=== PATIENT | male | born 1955 | race Two or more races ===

== ENCOUNTER 2017-07-27 15:30 | Emergency (ER) | payer OTHER ==
[2017-07-27 15:41] VITALS: TEMP 98.1; BMI 22.9
[2017-07-27] MEDS ORDERED: guaiFENesin 200 mg/10 ml Syrup UD PO STA (16:58)
--- NOTE | 2017-07-27 17:14 | ED PDOC ---
Arrival/HPI - General Chief Complaint: Cough, Cold, Congestion Time Seen by Provider: 07/27/17 15:46 Historian: Patient - History of Present Illness Narrative History of Present Illness (Text): 07/27/17 17:05 61yo male with PMHx of hypertension present with complaint of yellow productive cough, nasal congestion, sore throat, body ache x one week. Reports subjective fever at night. He did not take any medication. Denies chest pain, abdominal pain, nausea, vomiting, sick contact, travel. Past Medical History - Provider Review Nursing Documentation Reviewed: Yes - Cardiac Hx Hypertension: Yes - Pulmonary Hx Respiratory Disorders: No - Neurological Hx Neurological Disorder: No - HEENT Hx HEENT Disorder: No - Renal Hx Renal Disorder: No - Endocrine/Metabolic Hx Endocrine Disorders: No - Hematological/Oncological Hx Blood Disorders: No - Integumentary Hx Dermatological Disorder: No - Musculoskeletal/Rheumatological Hx Musculoskeletal Disorders: No - Gastrointestinal Hx Gastrointestinal Disorders: No - Genitourinary/Gynecological Hx Genitourinary Disorders: No - Psychiatric Hx Psychophysiologic Disorder: No Hx Substance Use: No Family/Social History - Physician Review Nursing Documentation Reviewed: Yes Family/Social History: Unknown Family HX Smoking Status: Never Smoked Hx Alcohol Use: No Hx Substance Use: No Allergies/Home Meds Allergies/Adverse Reactions: Allergies No Known Allergies Allergy (Verified 07/27/17 15:41) Home Medications: Home Meds Medication Instructions Recorded Confirmed Enalapril/Hydrochlorothiazide 1 tab PO DAILY 07/27/17 07/27/17 [Enalapril-Hctz 10-25 mg Tablet] Metoprolol Succinate [Toprol XL] 50 mg PO DAILY 07/27/17 07/27/17 Review of Systems - Physician Review All systems were reviewed & negative as marked: Yes - Review of Systems Constitutional: Normal Eyes: Normal ENT: Sore Throat, Rhinorrhea Respiratory: Cough, Sputum. absent: SOB Cardiovascular: Normal Gastrointestinal: Normal Genitourinary Male: Normal Musculoskeletal: Normal Skin: Normal Neurological: Normal Endocrine: Normal Hemo/Lymphatic: Normal Psychiatric: Normal Physical Exam Vital Signs Reviewed: Yes Vital Signs Temp Pulse Resp BP Pulse Ox 07/27/17 17:49 68 18 128/76 99 07/27/17 15:38 98.1 F 71 16 130/85 96 Temperature: Afebrile Blood Pressure: Normal Pulse: Regular Respiratory Rate: Normal Appearance: Positive for: Well-Appearing, Non-Toxic, Comfortable Pain Distress: None Mental Status: Positive for: Alert and Oriented X 3 - Systems Exam Head: Present: Atraumatic, Normocephalic Pupils: Present: PERRL Extroacular Muscles: Present: EOMI Conjunctiva: Present: Normal Mouth: Present: Moist Mucous Membranes Pharnyx: Present: Normal. No: ERYTHEMA, EXUDATE, TONSILS ENLARGED, Peritonsilar Swelling, Uvular Deviation, Muffled/Hoarse Voice, Strider Nose (Internal): Present: Normal Inspection Neck: Present: Normal Range of Motion Respiratory/Chest: Present: Clear to Auscultation, Good Air Exchange. No: Respiratory Distress, Accessory Muscle Use, Wheezes, Decreased Breath Sounds, Rales, Retracting, Rhonchi, Tachypneic Cardiovascular: Present: Regular Rate and Rhythm, Normal S1, S2. No: Murmurs Abdomen: Present: Normal Bowel Sounds. No: Tenderness, Distention, Peritoneal Signs Back: Present: Normal Inspection Upper Extremity: Present: Normal Inspection. No: Cyanosis, Edema Lower Extremity: Present: Normal Inspection. No: Edema Neurological: Present: GCS=15, CN II-XII Intact, Speech Normal Skin: Present: Warm, Dry, Normal Color. No: Rashes Psychiatric: Present: Alert, Oriented x 3, Normal Insight, Normal Concentration Medical Decision Making ED Course and Treatment: 07/28/17 00:30 PT was hemodynamically stable and comfortable in ED. Rapid Flu and strep was negative CXR was NAD PT's symptoms has been ongoing for a week. He was placed on Zpack for URI. Referred to his PMd. TRT eD for any new or worsening symptoms. - Lab Interpretations Lab Results: Lab Results 07/27/17 16:04: Influenza Typ A,B (EIA) Negative for flu a/b, Grp A Beta Strep Ag Negative - RAD Interpretation Radiology Orders: 07/27/17 15:53 CHEST TWO VIEWS (PA/LAT) [RAD] Stat - Medication Orders Current Medication Orders: Discontinued Medications Azithromycin (Zithromax) 500 mg PO STAT STA PRN Reason: Protocol Stop: 07/27/17 17:03 Last Admin: 07/27/17 17:13 Dose: 500 mg Guaifenesin (Robitussin) 200 mg PO Q4H STA Stop: 07/27/17 16:59 Last Admin: 07/27/17 17:13 Dose: 200 mg Ibuprofen (Motrin Tab) 600 mg PO STAT STA Stop: 07/27/17 17:03 Last Admin: 07/27/17 17:13 Dose: 600 mg MAR Pain/Vitals Document 07/27/17 17:13 GMD (Rec: 07/27/17 17:13 GMD [facility] [id number] Pain Reassessment Is This A Pain ReAssessment? No Sleep Is patient sleeping during reassessment? No Presence of Pain Presence of Pain Yes Disposition/Present on Arrival - Present on Arrival Any Indicators Present on Arrival: No History of DVT/PE: No History of Uncontrolled Diabetes: No Urinary Catheter: No History of Decub. Ulcer: No History Surgical Site Infection Following: None - Disposition Have Diagnosis and Disposition been Completed?: Yes Diagnosis: URI (upper respiratory infection) Disposition: HOME/ ROUTINE Disposition Time: 17:15 Patient Plan: Discharge Condition: STABLE Discharge Instructions (ExitCare): Upper Respiratory Infection (ED) Additional Instructions: Follow up with your doctor Return to ED for any new or worsening symptoms Prescriptions: Azithromycin [Zithromax] 250 mg PO DAILY #4 tab Benzonatate [Tessalon Perle] 100 mg PO TID #30 capsule Referrals: Amaury Ocampo MD [Primary Care Provider] - Follow up with primary Forms: [employer] ([place]ian), WORK NOTE
[2017-07-27 17:50] VITALS: BP 128/76; PULSE 68; RESP 18; O2SAT 99
--- NOTE | 2017-07-28 10:08 | RAD ---
HISTORY: cough COMPARISON: No prior. TECHNIQUE: Chest PA and lateral FINDINGS: LUNGS: No active pulmonary disease. PLEURA: No significant pleural effusion identified. No pneumothorax apparent. CARDIOVASCULAR: Normal. OSSEOUS STRUCTURES: No significant abnormalities. VISUALIZED UPPER ABDOMEN: Normal. OTHER FINDINGS: None. IMPRESSION: No active disease.
== END 2017-07-27 17:52 | disposition home or self-care (01) ==
LOC: ED 15:30
DX: J06.9 Acute upper respiratory infection, unspecified (principal); I10 Essential (primary) hypertension

== ENCOUNTER 2017-09-08 18:28 | Emergency (ER) | payer OTHER ==
[2017-09-08 21:15] VITALS: BMI 26.6
[2017-09-08] MEDS ORDERED: Lidocaine 1% Inj (20ml) SC STA (21:39)
--- NOTE | 2017-09-08 21:43 | ED PDOC ---
Arrival/HPI - General Chief Complaint: Flu-like Symptoms Time Seen by Provider: 09/08/17 21:22 Historian: Patient - History of Present Illness Narrative History of Present Illness (Text): 09/08/17 21:40 61 year old male, whose past medical history includes hypertension, presents complaining of sore throat, cough, ear ache, and yellow discharge from the nose that began 5 hours ago. Patient also reports a subjective fever. Patient denies any chills, chest pain, shortness of breath, nausea, vomiting, diarrhea, urinary symptoms, back pain, neck pain, headache, dizziness, or any other complaints. PMD: Dr. Ocampo Time/Duration: Other (5 hours) Symptom Onset: Sudden Symptom Course: Unchanged Activities at Onset: Light Context: Home Past Medical History - Provider Review Nursing Documentation Reviewed: Yes - Cardiac Hx Hypertension: Yes - Pulmonary Hx Respiratory Disorders: No - Neurological Hx Neurological Disorder: No - HEENT Hx HEENT Disorder: No - Renal Hx Renal Disorder: No - Endocrine/Metabolic Hx Endocrine Disorders: No - Hematological/Oncological Hx Blood Disorders: No - Integumentary Hx Dermatological Disorder: No - Musculoskeletal/Rheumatological Hx Musculoskeletal Disorders: No - Gastrointestinal Hx Gastrointestinal Disorders: No - Genitourinary/Gynecological Hx Genitourinary Disorders: No - Psychiatric Hx Psychophysiologic Disorder: No Hx Substance Use: No Family/Social History - Physician Review Nursing Documentation Reviewed: Yes Family/Social History: No Known Family HX Smoking Status: Never Smoked Hx Alcohol Use: No Hx Substance Use: No Allergies/Home Meds Allergies/Adverse Reactions: Allergies No Known Allergies Allergy (Verified 09/08/17 21:16) Home Medications: Home Meds Medication Instructions Recorded Confirmed Enalapril/Hydrochlorothiazide 1 tab PO DAILY 07/27/17 09/08/17 [Enalapril-Hctz 10-25 mg Tablet] Metoprolol Succinate [Toprol XL] 50 mg PO DAILY 07/27/17 09/08/17 Review of Systems - Physician Review All systems were reviewed & negative as marked: Yes - Review of Systems Constitutional: Fevers. absent: Other (Chills) ENT: TMJ Pain, Sore Throat, Rhinorrhea Respiratory: Cough. absent: SOB Cardiovascular: absent: Chest Pain Gastrointestinal: absent: Diarrhea, Nausea, Vomiting Neurological: Headache. absent: Dizziness Physical Exam Vital Signs Reviewed: Yes Vital Signs Temp Pulse Resp BP Pulse Ox 09/08/17 21:12 98.5 F 77 18 156/90 H 96 Temperature: Afebrile Blood Pressure: Normal Pulse: Regular Respiratory Rate: Normal Appearance: Positive for: Well-Appearing, Non-Toxic, Comfortable Pain Distress: None Mental Status: Positive for: Alert and Oriented X 3 - Systems Exam Head: Present: Atraumatic, Normocephalic, Tenderness (Tender frontal sinus) Pupils: Present: PERRL Extroacular Muscles: Present: EOMI Conjunctiva: Present: Normal Mouth: Present: Moist Mucous Membranes Neck: Present: Normal Range of Motion Respiratory/Chest: Present: Clear to Auscultation, Good Air Exchange. No: Respiratory Distress, Accessory Muscle Use Cardiovascular: Present: Regular Rate and Rhythm, Normal S1, S2. No: Murmurs Abdomen: Present: Normal Bowel Sounds. No: Tenderness, Distention, Peritoneal Signs Back: Present: Normal Inspection Upper Extremity: Present: Normal Inspection. No: Cyanosis, Edema Lower Extremity: Present: Normal Inspection, Other (Paronychia on left third digit). No: Edema Neurological: Present: GCS=15, CN II-XII Intact, Speech Normal Skin: Present: Warm, Dry, Normal Color. No: Rashes Psychiatric: Present: Alert, Oriented x 3, Normal Insight, Normal Concentration Medical Decision Making ED Course and Treatment: 09/08/17 21:40 Impression: 61 year old male presents complaining of subjective fever, sore throat, cough, ear ache, and rhinorrhea that began 5 hours ago. Plan: -- Lidocaine 1% -- Motrin -- Wound Culture -- Influenza A B Stat -- Rapid Strep Group A Antigen Stat -- Reassess and disposition Prior Visits: Notes and results from previous visits were reviewed. Patient was last seen in the emergency department on 07/27/17 presents complaining of yellow productive cough, nasal congestion, sore throat, body ache x one week. Patient was discharged. Progress Notes: 09/08/17 21:47 Procedure: Incision & Drainage Performed by [facility] medical Student supervised by the emergency provider Indication: Abscess Location: left third digit Preparation: The area was prepped and draped in the usual sterile fashion and was cleansed with hydrogen peroxide. Local infiltration of Lidocaine 1% was used for anesthesia. Procedure: The most fluctuant portion of the abscess was incised with a #11 scalpel. Approximately 1 mL of discharge was obtained. The abscess was not packed. A dressing was applied by medical student Valdez. Post-Procedure: On exam the abscess is notably less fluctuant. The patient tolerated the procedure well, and there were no complications. Cultured: YES - Lab Interpretations Lab Results: Lab Results 09/08/17 21:45: Influenza Typ A,B (EIA) Negative for flu a/b, Grp A Beta Strep Ag Negative - Medication Orders Current Medication Orders: Discontinued Medications Ibuprofen (Motrin Tab) 800 mg PO STAT STA Stop: 09/08/17 21:35 Last Admin: 09/08/17 22:00 Dose: 800 mg Lidocaine HCl (Lidocaine 1% (20ml)) 3 ml SC STAT STA Stop: 09/08/17 21:40 - Scribe Statement The provider has reviewed the documentation as recorded by the Sedaibe Clya Turpin Provider Scribe Attestation: All medical record entries made by the Scribe were at my direction and personally dictated by me. I have reviewed the chart and agree that the record accurately reflects my personal performance of the history, physical exam, medical decision making, and the department course for this patient. I have also personally directed, reviewed, and agree with the discharge instructions and disposition. Disposition/Present on Arrival - Present on Arrival Any Indicators Present on Arrival: No History of DVT/PE: No History of Uncontrolled Diabetes: No Urinary Catheter: No History of Decub. Ulcer: No History Surgical Site Infection Following: None - Disposition Have Diagnosis and Disposition been Completed?: Yes Diagnosis: Paronychia, Viral syndrome Disposition: HOME/ ROUTINE Disposition Time: 23:26 Patient Plan: Discharge Patient Problems: Current Active Problems Problem Status Onset Paronychia Acute Viral syndrome Acute Condition: GOOD Discharge Instructions (ExitCare): Paronychia (ED), Viral Syndrome (ED) Additional Instructions: Waqar- Sorry you are not feeling well. You will need antibiotics for the infection on your finger. [Bactrim DS]. Off work for two days. Return to us if any problems. Jonathan- Dr. Cedric Abreu Prescriptions: Sulfamethoxazole/Trimethoprim [Bactrim DS 800 mg-160 mg] 1 tab PO BID #20 tab Referrals: Sammi Ocampo MD [Primary Care Provider] - Follow up with primary Forms: [employer] (Greenlandic), WORK NOTE
[2017-09-08 22:33] LABS: INFLUENZA A B NEGATIVE FOR FLU A/B (NEGATIVE)
[2017-09-09 00:12] VITALS: BP 150/82; PULSE 70; RESP 16; TEMP 98.6; O2SAT 100
== END 2017-09-09 00:11 | disposition home or self-care (01) ==
LOC: ED 18:28
DX: B34.9 Viral infection, unspecified (principal); L03.012 Cellulitis of left finger; I10 Essential (primary) hypertension

== ENCOUNTER 2018-06-10 17:14 | Emergency (ER) | payer MEDICAID, OTHER ==
[2018-06-10 17:14] VITALS: BMI 26.6
[2018-06-10 17:32] VITALS: RESP 18; TEMP 99
--- NOTE | 2018-06-10 18:31 | RAD ---
Date of service: 06/10/2018 HISTORY: cough COMPARISON: 07/27/2017 TECHNIQUE: Chest PA and lateral FINDINGS: LUNGS: No active pulmonary disease. PLEURA: No significant pleural effusion identified. No pneumothorax apparent. CARDIOVASCULAR: No radiographic findings to suggest acute or significant cardiovascular disease. OSSEOUS STRUCTURES: No significant abnormalities. VISUALIZED UPPER ABDOMEN: Normal. OTHER FINDINGS: None. IMPRESSION: No active disease. No significant interval change compared to the prior examination(s).
--- NOTE | 2018-06-10 18:54 | ED PDOC ---
Arrival/HPI - General Historian: Patient - History of Present Illness Narrative History of Present Illness (Text): 06/10/18 19:08 62-year-old male presents today with cough and nasal congestion headache and subjective fevers at home since yesterday. No abdominal pain. No nausea or vomiting. No sick contacts. Patient states he got his flu shot about a month ago. Patient states the cough is occasionally productive. Patient denies any chest pain or shortness of breath. Patient denies dizziness or weakness.Patient complaining of occasional headache. No medications have been taken for pain at home. Patient also complaining of generalized body aches. <Deidra Cash - Last Filed: 06/10/18 19:29> <Traci Harrington - Last Filed: 06/10/18 19:59> - General Chief Complaint: Cough, Cold, Congestion Time Seen by Provider: 06/10/18 17:50 Past Medical History - Provider Review Nursing Documentation Reviewed: Yes - Travel History Have you recently traveled outside [place] w/in the past 3 mons?: No - Infectious Disease Hx of Infectious Diseases: None - Tetanus Immunization Tetanus Immunization: Unknown - Cardiac Hx Hypertension: Yes - Pulmonary Hx Respiratory Disorders: No - Neurological Hx Neurological Disorder: No - HEENT Hx HEENT Disorder: No - Renal Hx Renal Disorder: No - Endocrine/Metabolic Hx Endocrine Disorders: No - Hematological/Oncological Hx Blood Disorders: No - Integumentary Hx Dermatological Disorder: No - Musculoskeletal/Rheumatological Hx Musculoskeletal Disorders: No - Gastrointestinal Hx Gastrointestinal Disorders: No - Genitourinary/Gynecological Hx Genitourinary Disorders: No - Psychiatric Hx Psychophysiologic Disorder: No Hx Substance Use: No - Anesthesia Hx Anesthesia Reactions: No <Deidra Cash - Last Filed: 06/10/18 19:29> Family/Social History - Physician Review Nursing Documentation Reviewed: Yes Family/Social History: Unknown Family HX Smoking Status: Never Smoked Hx Alcohol Use: No Hx Substance Use: No <Deidra Cash - Last Filed: 06/10/18 19:29> Allergies/Home Meds <Deidra Cash - Last Filed: 06/10/18 19:29> <Traci Harrington - Last Filed: 06/10/18 19:59> Allergies/Adverse Reactions: Allergies No Known Allergies Allergy (Verified 09/08/17 21:16) Home Medications: Home Meds Medication Instructions Recorded Confirmed Enalapril/Hydrochlorothiazide 1 tab PO DAILY 07/27/17 09/08/17 [Enalapril-Hctz 10-25 mg Tablet] RX: Metoprolol Succinate XL 50 mg PO DAILY 07/27/17 09/08/17 [Toprol XL] Review of Systems - Review of Systems Constitutional: Fevers. absent: Fatigue ENT: Sore Throat, Sinus Congestion Respiratory: Cough. absent: SOB Cardiovascular: absent: Chest Pain, Palpitations Gastrointestinal: absent: Abdominal Pain, Nausea, Vomiting Genitourinary Male: absent: Dysuria Musculoskeletal: absent: Arthralgias Skin: absent: Rash, Pruritis Neurological: Headache. absent: Dizziness Psychiatric: absent: Anxiety, Depression <AzoiaDeidra T - Last Filed: 06/10/18 19:29> Physical Exam Vital Signs Reviewed: Yes Vital Signs Temp Pulse Resp BP Pulse Ox 06/10/18 17:28 99 F 67 18 133/87 99 Temperature: Afebrile Blood Pressure: Normal Pulse: Regular Respiratory Rate: Normal Appearance: Positive for: Well-Appearing, Non-Toxic, Comfortable Pain Distress: None Mental Status: Positive for: Alert and Oriented X 3 - Systems Exam Head: Present: Atraumatic Pupils: Present: PERRL Extroacular Muscles: Present: EOMI Conjunctiva: Present: Normal Ears: Present: Normal, NORMAL TM Mouth: Present: Moist Mucous Membranes, Normal Lips, Normal Tounge. No: Drooling, Trismus Pharnyx: Present: Normal. No: ERYTHEMA, EXUDATE, TONSILS ENLARGED, Peritonsilar Swelling Nose (External): Present: Atraumatic Nose (Internal): Present: Normal Inspection, Clear Mucous Neck: Present: Normal Range of Motion, Trachea Midline. No: Lymphadenopathy Respiratory/Chest: Present: Clear to Auscultation, Good Air Exchange. No: Respiratory Distress, Accessory Muscle Use Cardiovascular: Present: Regular Rate and Rhythm, Normal S1, S2. No: Murmurs Abdomen: No: Tenderness Back: Present: Normal Inspection. No: CVA Tenderness, Midline Tenderness, Paraspinal Tenderness Upper Extremity: Present: Normal ROM Lower Extremity: Present: Normal ROM Neurological: Present: GCS=15, Speech Normal, Gait Normal Skin: Present: Warm, Dry, Normal Color. No: Rashes Psychiatric: Present: Alert, Oriented x 3 <Deidra Cash Carlos - Last Filed: 06/10/18 19:29> Vital Signs Temp Pulse Resp BP Pulse Ox 06/10/18 17:28 99 F 67 18 133/87 99 <Traci Harrington - Last Filed: 06/10/18 19:59> Medical Decision Making ED Course and Treatment: 06/10/18 19:10 Patient is nontoxic well-appearing in no distress. Vital signs are stable. toradol IM CXR; no infiltrate, no effusion rapid flu; negative tamiflu given Po I advised follow up with primary care physician within the next 2 days. I advised increase fluids and return if symptoms worsen persist or if new symptoms develop. Patient verbalizes understanding of discharge instructions and need for immediate followup. all aspects of this case were discussed the attending of record. IMPRESSION; Influenza Motrin one tablet every 6 hours as needed for pain tamiflu; 1 capsule twice daily x 5 days. Increase fluids Followup with primary care physician the next 2 days Return if symptoms worsen persist or if new symptoms develop Reassessment Condition: Re-examined, Improved - Lab Interpretations Lab Results: Lab Results 06/10/18 18:00: Influenza Typ A,B (EIA) Negative for flu a/b - RAD Interpretation Radiology Orders: 06/10/18 17:51 CHEST TWO VIEWS (PA/LAT) [RAD] Stat - Medication Orders Current Medication Orders: Oseltamivir Phosphate (Tamiflu Cap) 75 mg PO STAT STA; Protocol Stop: 06/10/18 18:51 Discontinued Medications Ketorolac Tromethamine (Toradol) 30 mg IM STAT STA Stop: 06/10/18 17:52 Last Admin: 06/10/18 17:58 Dose: 30 mg MAR Pain Assessment Document 06/10/18 17:58 AILEEN (Rec: 06/10/18 18:00 AILEEN VALLEJO) Pain Reassessment Is this a pain reassessment? Yes Sleep Is patient sleeping during reassessment? Yes Pain Scale Used Protocol: PSCALES Pain Scale Used Numeric Location Pain Location Body Site Back Description Intensity of Pain at present 4 IM Administration Charges Document 06/10/18 17:58 AILEEN (Rec: 06/10/18 18:00 AILEEN VALLEJO) Injection Site MAR Injection Site Left Deltoid Charges for Administration # of IM Administrations 1 <Deidra Cash - Last Filed: 06/10/18 19:29> - Lab Interpretations Lab Results: Lab Results 06/10/18 18:00: Influenza Typ A,B (EIA) Negative for flu a/b - RAD Interpretation Radiology Orders: 06/10/18 17:51 CHEST TWO VIEWS (PA/LAT) [RAD] Stat - Medication Orders Current Medication Orders: Discontinued Medications Ketorolac Tromethamine (Toradol) 30 mg IM STAT STA Stop: 06/10/18 17:52 Last Admin: 06/10/18 17:58 Dose: 30 mg MAR Pain Assessment Document 06/10/18 17:58 AILEEN (Rec: 06/10/18 18:00 AILEEN BOOGIE-PC) Pain Reassessment Is this a pain reassessment? Yes Sleep Is patient sleeping during reassessment? Yes Pain Scale Used Protocol: PSCALES Pain Scale Used Numeric Location Pain Location Body Site Back Description Intensity of Pain at present 4 IM Administration Charges Document 06/10/18 17:58 AILEEN (Rec: 06/10/18 18:00 AILEEN BOOGIE-PC) Injection Site MAR Injection Site Left Deltoid Charges for Administration # of IM Administrations 1 Oseltamivir Phosphate (Tamiflu Cap) 75 mg PO STAT STA; Protocol Stop: 06/10/18 18:51 Last Admin: 06/10/18 18:58 Dose: 75 mg <Traci Harrington - Last Filed: 06/10/18 19:59> - PA / TALENT ACQUISITION OPERATIONS MANAGER / Resident Statement /DO has reviewed & agrees with the documentation as recorded. <Traci Harrington - Last Filed: 06/10/18 19:59> Disposition/Present on Arrival - Present on Arrival Any Indicators Present on Arrival: No History of DVT/PE: No History of Uncontrolled Diabetes: No Urinary Catheter: No History of Decub. Ulcer: No History Surgical Site Infection Following: None - Disposition Have Diagnosis and Disposition been Completed?: Yes Disposition Time: 18:51 Patient Plan: Discharge <Deidra Cash - Last Filed: 06/10/18 19:29> <Traci Harrington - Last Filed: 06/10/18 19:59> - Disposition Diagnosis: Influenza Disposition: HOME/ ROUTINE Condition: GOOD Discharge Instructions (ExitCare): Flu, Adult (DC) Additional Instructions: Motrin one tablet every 6 hours as needed for pain tamiflu; 1 capsule twice daily x 5 days. Increase fluids Followup with primary care physician the next 2 days Return if symptoms worsen persist or if new symptoms develop Prescriptions: Ibuprofen [Motrin] 600 mg PO Q6H PRN #20 tab PRN Reason: pain/fever reduction Oseltamivir [Tamiflu] 75 mg PO BID #10 cap Referrals: Sammi Ocampo MD [Medical Doctor] - Follow up with primary Forms: [employer] ([place]ian), WORK NOTE
[2018-06-10 23:33] VITALS: BP 131/78; PULSE 72; O2SAT 100
--- NOTE | 2018-06-11 06:31 | CARD ---
APPROVED REPORT Date of service: 06/10/2018 EKG Measurement Heart [id number] <Conclusion> Normal sinus rhythm Possible Left atrial enlargement Borderline ECG
== END 2018-06-10 19:00 | disposition home or self-care (01) ==
LOC: ED 17:14
DX: J11.1 Influenza due to unidentified influenza virus with other respiratory manifestations (principal); I10 Essential (primary) hypertension
CPT/HCPCS: 71046; 87804; 93005; 96372; 99283; J1885

== ENCOUNTER 2018-09-12 09:01 | Emergency (ER) | payer MEDICAID ==
[2018-09-12 09:01] VITALS: BMI 26.6
[2018-09-12 09:23] VITALS: RESP 18; TEMP 97.5
--- NOTE | 2018-09-12 10:39 | ED PDOC ---
Arrival/HPI - General Chief Complaint: Back Pain Time Seen by Provider: 09/12/18 09:24 Historian: Patient - History of Present Illness Narrative History of Present Illness (Text): 09/12/18 10:44 62-year-old male presents today with abdominal pain diarrhea and back pain that started at 5 AM this morning. Patient also complaining of anterior chest pain that started an hour ago. Patient denies fevers or chills. Patient states that one month ago he lifted a patient up from the floor while at work and injured his back. Patient states he's been dealing with pain to the lower back radiating into both legs right greater than left ever since lifting the patient up. Patient states she's been taking Motrin and tramadol for pain without improvement. Patient states this morning at 5:00 in the morning he developed worsening lower back pain radiating into the right leg. Patient states he also developed and achy abdominal pain that radiates to the back. pt also states that he developed chest pain that radiates to the back. Patient states he's had a few episodes of diarrhea but states he has not had any diarrhea since being in the emergency room. Patient denies fevers or chills. He denies urinary symptoms. No testicular pain. No headache dizziness or weakness. No other complaints Past Medical History - Provider Review Nursing Documentation Reviewed: Yes - Travel History Have you recently traveled outside [place] w/in the past 3 mons?: No - Infectious Disease Hx of Infectious Diseases: None - Tetanus Immunization Tetanus Immunization: Unknown - Cardiac Hx Hypertension: Yes - Pulmonary Hx Respiratory Disorders: No - Neurological Hx Neurological Disorder: No - HEENT Hx HEENT Disorder: No - Renal Hx Renal Disorder: No - Endocrine/Metabolic Hx Endocrine Disorders: No - Hematological/Oncological Hx Blood Disorders: No - Integumentary Hx Dermatological Disorder: No - Musculoskeletal/Rheumatological Hx Musculoskeletal Disorders: No - Gastrointestinal Hx Gastrointestinal Disorders: No - Genitourinary/Gynecological Hx Genitourinary Disorders: No - Psychiatric Hx Psychophysiologic Disorder: No Hx Substance Use: No - Anesthesia Hx Anesthesia: No Hx Anesthesia Reactions: No Hx Malignant Hyperthermia: No Family/Social History - Physician Review Nursing Documentation Reviewed: Yes Family/Social History: Unknown Family HX Smoking Status: Never Smoked Hx Alcohol Use: No Hx Substance Use: No Allergies/Home Meds Allergies/Adverse Reactions: Allergies No Known Allergies Allergy (Verified 09/08/17 21:16) Home Medications: Home Meds Medication Instructions Recorded Confirmed Enalapril/Hydrochlorothiazide 1 tab PO DAILY 07/27/17 09/12/18 [Enalapril-Hctz 10-25 mg Tablet] Metoprolol Succinate XL [Toprol XL] 50 mg PO DAILY 07/27/17 09/12/18 Review of Systems - Review of Systems Constitutional: absent: Fatigue, Fevers Respiratory: absent: SOB, Cough Cardiovascular: Chest Pain. absent: Palpitations Gastrointestinal: Abdominal Pain, Diarrhea. absent: Constipation, Nausea, Vomiting Genitourinary Male: absent: Dysuria, Frequency, Hematuria Musculoskeletal: Back Pain. absent: Neck Pain Skin: absent: Rash, Pruritis Neurological: absent: Headache, Dizziness Psychiatric: absent: Anxiety, Depression Physical Exam Vital Signs Reviewed: Yes Vital Signs Temp Pulse Resp BP Pulse Ox 09/12/18 09:01 97.5 F L 78 18 149/93 H 97 Temperature: Afebrile Blood Pressure: Hypertensive Pulse: Regular Respiratory Rate: Normal Appearance: Positive for: Well-Appearing, Non-Toxic, Comfortable Pain Distress: None Mental Status: Positive for: Alert and Oriented X 3 - Systems Exam Head: Present: Atraumatic Neck: Present: Normal Range of Motion Respiratory/Chest: Present: Clear to Auscultation, Good Air Exchange. No: Respiratory Distress, Accessory Muscle Use Cardiovascular: Present: Regular Rate and Rhythm, Normal S1, S2. No: Murmurs Abdomen: Present: Tenderness (+ periumbilical tenderness), Normal Bowel Sounds. No: Distention, Rebound, Guarding Back: Present: Normal Inspection, Paraspinal Tenderness (+ bilateral low lumbar paraspinal tenderness. ). No: CVA Tenderness, Midline Tenderness Upper Extremity: Present: Normal Inspection Lower Extremity: Present: Normal Inspection, NORMAL PULSES, Normal ROM, Neurovascularly Intact Neurological: Present: GCS=15, Speech Normal Skin: Present: Warm, Dry, Normal Color. No: Rashes Psychiatric: Present: Alert, Oriented x 3 Medical Decision Making ED Course and Treatment: 09/12/18 10:48 Patient is nontoxic well appearing with stable vital signs presenting with abdominal pain, chest pain, back pain CBC: wnl CMP: bun 26 cr: 1.1 K: 3.3 Lipase: wnl trop; wnl Urinalysis: wnl cxr; wnl CAT scan: Findings: Visualized portions of the inferior thyroid gland appear unremarkable. The mediastinal and hilar vascular structures appear within normal limits. The heart appears within normal limits of size. Coronary artery calcifications. No evidence of thoracic aorta dissection or aneurysmal dilatation. No focal consolidation. No pleural effusion. No pneumothorax. No suspicious pulmonary nodules measuring greater than 5 mm. There is normal course and contour of the abdominal aorta and common iliac art eries. No evidence of aortic aneurysm or dissection. Atherosclerotic calcifications of the aorta and branches. Hypoattenuation of the liver compatible with hepatic steatosis. The pancreas, spleen, adrenal glands, and gallbladder appear unremarkable. The kidneys enhance symmetrically without evidence of hydronephrosis or obstructing renal calculi. 4 mm nonobstructing right renal calculus. 1.9 x 1.3 cm right renal cyst. Sub cm mesenteric adenopathy, nonspecific. No bulky lymphadenopathy identified. Small hiatal hernia. The stomach is nondistended. Visualized bowel loops appear within normal limits of caliber without evidence of obstruction. No inflammatory changes are seen in the right lower quadrant to suggest acute appendicitis. No definite free air. The urinary bladder appears unremarkable. Enlarged prostate gland measures approximately 3.7 x 5.9 cm. No significant pelvic free fluid is identified. Small bilateral, left greater than right, fat containing inguinal hernias. Degenerative changes. 4 mm anterolisthesis of L4 on L5. Impression: No evidence of aortic aneurysm or dissection. Enlarged prostate gland. Recommend correlation with PSA. Additional incidental findings as above. pt given morphine, asa 235mg and potassium Patient reassessment: pt resting comfortably. case discussed with dr. reyes; accepts observational status admission to tele for cp, abd pain and back pain. Discussed all results with patient in depth Impression: chest pain, abdominal pain, back pain admit observational status to remote tele - RAD Interpretation Radiology Orders: 09/12/18 09:43 CHEST PORTABLE [RAD] Stat 09/12/18 10:27 ANGIOGRAPHY DISECTION PROTOCOL [CT] Stat Disposition/Present on Arrival - Present on Arrival Any Indicators Present on Arrival: No History of DVT/PE: No History of Uncontrolled Diabetes: No Urinary Catheter: No History of Decub. Ulcer: No History Surgical Site Infection Following: None - Disposition Have Diagnosis and Disposition been Completed?: Yes Diagnosis: Chest pain, Abdominal pain, Back pain Disposition: HOSPITALIZED Disposition Time: 12:30 Patient Plan: Observation Condition: FAIR
[2018-09-12 10:59] LABS: BASO # 0.03 K/mm3 (0.0-2.0); BASO % 0.6 % (0.0-3.0); EOS # 0.4 (0.0-0.7); EOS % 8.5 % (1.5-5.0); GRAN # 2.32 (1.4-6.5); GRAN % 48.3 % (50.0-68.0); HEMOGLOBIN 14.4 g/dL (14.0-18.0); LYMPH # 1.8 (1.2-3.4); LYMPH % 37.4 % (22.0-35.0); MEAN CELL VOLUME 82.6 fl (80.0-105.0); MEAN CORPUSCULAR HEMOGLOBIN 27.9 pg (25.0-35.0); MEAN CORPUSCULAR HGB CONC 33.7 g/dl (31.0-37.0); MEAN PLATELET VOLUME 8.6 fl (7.0-11.0); MONO # 0.3 (0.1-0.6); MONO % 5.2 % (1.0-6.0); RBC 5.17 10^6/uL (3.5-6.1); RED CELL DISTRIBUTION WIDTH 13.9 % (11.5-14.5); WHITE BLOOD COUNT 4.8 10^3/uL (4.5-11.0)
[2018-09-12 11:08] LABS: INR 0.92; PARTIAL THROMBOPLASTIN TIME 28.3 Seconds (25.1-36.5); PROTHROMBIN TIME 10.6 SECONDS (9.4-12.5)
[2018-09-12 11:10] LABS: ALB/GLOB RATIO 1.3 (1.1-1.8); ALBUMIN 4.6 g/dL (3.0-4.8); ALT/SGPT 29 U/L (7-56); AST/SGOT 31 U/L (17-59); BLOOD UREA NITROGEN 26 mg/dL (7-21); CALCIUM 9.7 mg/dL (8.4-10.5); GFR NON-AFRICAN AMERICAN > 60; LIPASE 137 U/L (23-300)
[2018-09-12 11:20] LABS: TROPONIN I < 0.01 ng/mL
[2018-09-12] MEDS ORDERED: Sodium Chloride 0.9% 500 ML IV STA (11:28)
[2018-09-12 11:45] LABS: VENOUS BLOOD GAS BASE EXCESS 3.4 mmol/L (0.0-2.0); VENOUS BLOOD GAS PO2 32 mm/Hg (30-55); VENOUS BLOOD PH 7.35 (7.32-7.43)
[2018-09-12 11:47] LABS: PH,URINE 6.5 (4.7-8.0); URINE APPEARANCE CLEAR (CLEAR); URINE BILIRUBIN NEGATIVE (NEGATIVE); URINE BLOOD NEGATIVE (NEGATIVE); URINE COLOR YELLOW (YELLOW); URINE GLUCOSE (UA) NEGATIVE (NEGATIVE); URINE LEUKOCYTE ESTERASE NEGATIVE Leu/uL (NEGATIVE); URINE PROTEIN NEGATIVE mg/dL (<30 mg/dL); URINE UROBILINOGEN 0.2 E.U./dL (<1 E.U./dL)
--- NOTE | 2018-09-12 12:08 | RAD ---
Date of service: 09/12/2018 HISTORY: abd pain COMPARISON: 06/10/2018 FINDINGS: LUNGS: No active pulmonary disease. PLEURA: No significant pleural effusion identified, no pneumothorax apparent. CARDIOVASCULAR: No aortic atherosclerotic calcification present. Normal cardiac size. No pulmonary vascular congestion. OSSEOUS STRUCTURES: No significant abnormalities. VISUALIZED UPPER ABDOMEN: Normal. OTHER FINDINGS: None. IMPRESSION: No active disease.
--- NOTE | 2018-09-12 12:40 | CT ---
Date of service: 09/12/2018 CT Dissection protocol Indication: chest pain, abd pain, back pain Technique: Contiguous axial images were obtained through the chest/abdomen/pelvis without and with intravenous contrast enhancement utilizing dissection protocol technique. Sagittal and coronal reconstructions were generated and reviewed. This CT exam was performed using 1 or more of the following dose reduction techniques: Automated exposure control, adjustment of the MAA and/or kV according to patient size, and/or use of iterative reconstruction technique. Radiation dose (DLP): 1163.03 MGy-cm. Contrast: 140 mL Visipaque 320 IV Findings: Visualized portions of the inferior thyroid gland appear unremarkable. The mediastinal and hilar vascular structures appear within normal limits. The heart appears within normal limits of size. Coronary artery calcifications. No evidence of thoracic aorta dissection or aneurysmal dilatation. No focal consolidation. No pleural effusion. No pneumothorax. No suspicious pulmonary nodules measuring greater than 5 mm. There is normal course and contour of the abdominal aorta and common iliac arteries. No evidence of aortic aneurysm or dissection. Atherosclerotic calcifications of the aorta and branches. Hypoattenuation of the liver compatible with hepatic steatosis. The pancreas, spleen, adrenal glands, and gallbladder appear unremarkable. The kidneys enhance symmetrically without evidence of hydronephrosis or obstructing renal calculi. 4 mm nonobstructing right renal calculus. 1.9 x 1.3 cm right renal cyst. Sub cm mesenteric adenopathy, nonspecific. No bulky lymphadenopathy identified. Small hiatal hernia. The stomach is nondistended. Visualized bowel loops appear within normal limits of caliber without evidence of obstruction. No inflammatory changes are seen in the right lower quadrant to suggest acute appendicitis. No definite free air. The urinary bladder appears unremarkable. Enlarged prostate gland measures approximately 3.7 x 5.9 cm. No significant pelvic free fluid is identified. Small bilateral, left greater than right, fat containing inguinal hernias. Degenerative changes. 4 mm anterolisthesis of L4 on L5. Impression: No evidence of aortic aneurysm or dissection. Enlarged prostate gland. Recommend correlation with PSA. Additional incidental findings as above.
[2018-09-12] MEDS ORDERED: Potassium Chloride 20 mEq ER Tab PO STA (13:55)
--- NOTE | 2018-09-12 14:24 | CP.PCM.HP ---
Past Patient History - Infectious Disease Hx of Infectious Diseases: None - Tetanus Immunizations Tetanus Immunization: Unknown - Past Social History Smoking Status: Never Smoked - CARDIAC Hx Hypertension: Yes - PULMONARY Hx Respiratory Disorders: No - NEUROLOGICAL Hx Neurological Disorder: No - HEENT Hx HEENT Problems: No - RENAL Hx Chronic Kidney Disease: No - ENDOCRINE/METABOLIC Hx Endocrine Disorders: No - HEMATOLOGICAL/ONCOLOGICAL Hx Blood Disorders: No - INTEGUMENTARY Hx Dermatological Problems: No - MUSCULOSKELETAL/RHEUMATOLOGICAL Hx Musculoskeletal Disorders: No - GASTROINTESTINAL Hx Gastrointestinal Disorders: No - GENITOURINARY/GYNECOLOGICAL Hx Genitourinary Disorders: No - PSYCHIATRIC Hx Psychophysiologic Disorder: No Hx Substance Use: No - SURGICAL HISTORY Hx Surgeries: No - ANESTHESIA Hx Anesthesia: No Hx Anesthesia Reactions: No Hx Malignant Hyperthermia: No Meds Allergies/Adverse Reactions: Allergies Allergy/AdvReac Type Severity Reaction Status Date / Time No Known Allergies Allergy Verified 09/08/17 21:16 Results - Vital Signs Recent Vital Signs: Last Vital Signs Temp 97.5 F L 09/12/18 09:01 Pulse 71 09/12/18 14:01 Resp 18 09/12/18 14:01 BP 131/78 09/12/18 14:01 Pulse Ox 97 09/12/18 14:01 - Labs Result Diagrams: 09/12/18 10:15 09/12/18 10:15 Labs: Laboratory Results - last 24 hr 09/12/18 09/12/18 09/12/18 10:15 10:15 10:15 WBC 4.8 RBC 5.17 Hgb 14.4 Hct 42.7 MCV 82.6 MCH 27.9 MCHC 33.7 RDW 13.9 Plt Count 212 MPV 8.6 Gran % 48.3 L Lymph % (Auto) 37.4 H [place] % (Auto) 5.2 Eos % (Auto) 8.5 H Baso % (Auto) 0.6 Gran # 2.32 Lymph # (Auto) 1.8 [place] # (Auto) 0.3 Eos # (Auto) 0.4 Baso # (Auto) 0.03 PT 10.6 INR 0.92 APTT 28.3 pO2 VBG pH VBG pCO2 VBG HCO3 VBG Total CO2 VBG O2 Sat (Calc) VBG Base Excess VBG Potassium Glucose Lactate FiO2 Sodium 139 Potassium 3.3 L Chloride 100 Carbon Dioxide 28 Anion Gap 15 BUN 26 H Creatinine 1.1 Est GFR ( Amer) > 60 Est GFR (Non-Af Amer) > 60 Random Glucose 102 Calcium 9.7 Total Bilirubin 0.6 AST 31 ALT 29 Alkaline Phosphatase 72 Lactate Dehydrogenase 409 Total Creatine Kinase 152 Troponin I < 0.01 Total Protein 8.3 Albumin 4.6 Globulin 3.6 Albumin/Globulin Ratio 1.3 Lipase 137 Venous Blood Potassium Urine Color Urine Appearance Urine pH Ur Specific [place] Urine Protein Urine Glucose (UA) Urine Ketones Urine Blood Urine Nitrate Urine Bilirubin Urine Urobilinogen Ur Leukocyte Esterase 09/12/18 09/12/18 11:36 11:36 WBC RBC Hgb Hct MCV MCH MCHC RDW Plt Count MPV Gran % Lymph % (Auto) [place] % (Auto) Eos % (Auto) Baso % (Auto) Gran # Lymph # (Auto) [place] # (Auto) Eos # (Auto) Baso # (Auto) PT INR APTT pO2 32 VBG pH 7.35 VBG pCO2 55.0 VBG HCO3 30.4 H VBG Total CO2 32.1 H VBG O2 Sat (Calc) 67.4 H VBG Base Excess 3.4 H VBG Potassium 3.2 L Glucose 105 Lactate 0.8 FiO2 21.0 Sodium 136.0 Potassium Chloride 99.0 Carbon Dioxide Anion Gap BUN Creatinine Est GFR ( Amer) Est GFR (Non-Af Amer) Random Glucose Calcium Total Bilirubin AST ALT Alkaline Phosphatase Lactate Dehydrogenase Total Creatine Kinase Troponin I Total Protein Albumin Globulin Albumin/Globulin Ratio Lipase Venous Blood Potassium 3.2 L Urine Color Yellow Urine Appearance Clear Urine pH 6.5 Ur Specific [place] 1.020 Urine Protein Negative Urine Glucose (UA) Negative Urine Ketones Negative Urine Blood Negative Urine Nitrate Negative Urine Bilirubin Negative Urine Urobilinogen 0.2 Ur Leukocyte Esterase Negative
[2018-09-12] MEDS: Morphine 2 mg/ml ISec IVP STA ×2 (14:31→14:48)
[2018-09-12 14:48] VITALS: BP 125/83; PULSE 66; O2SAT 98
--- NOTE | 2018-09-12 20:04 | CARD ---
APPROVED REPORT Date of service: 09/12/2018 EKG Measurement Heart [id number] <Conclusion> Normal sinus rhythm Nonspecific T wave abnormality Abnormal ECG
[2018-09-13 05:38] LABS: T4 5.9 ug/dL (5.5-11.0)
== END 2018-09-12 14:55 | disposition left against medical advice (07) ==
LOC: ED 09:01 → ERH 14:04 → UNDOADMOB 14:04 → ERH 14:30 → ED 14:55
DX: R07.9 Chest pain, unspecified (principal); R10.9 Unspecified abdominal pain; M54.5 Low back pain; I10 Essential (primary) hypertension
CPT/HCPCS: 71045; 71275; 74175; 80053; 81003; 82550; 82803; 83036; 83615; 83690; 84436; 84443; 84484; 85025; 85610; 85730; 87040; 87086; 93005; 96360; 99284; J7040; Q9967

== ENCOUNTER 2018-09-12 16:47 | Observation (INO) | payer MEDICAID ==
[2018-09-12 16:47] VITALS: BMI 26.6
[2018-09-12 18:07] LABS: BASO # 0.01 K/mm3 (0.0-2.0); BASO % 0.2 % (0.0-3.0); EOS # 0.2 (0.0-0.7); GRAN # 2.42 (1.4-6.5); GRAN % 55.6 % (50.0-68.0); HEMOGLOBIN 13.5 g/dL (14.0-18.0); LYMPH # 1.5 (1.2-3.4); LYMPH % 33.9 % (22.0-35.0); MEAN CELL VOLUME 82.2 fl (80.0-105.0); MEAN CORPUSCULAR HEMOGLOBIN 27.6 pg (25.0-35.0); MEAN CORPUSCULAR HGB CONC 33.6 g/dl (31.0-37.0); MEAN PLATELET VOLUME 8.6 fl (7.0-11.0); MONO # 0.2 (0.1-0.6); MONO % 5.3 % (1.0-6.0); RBC 4.89 10^6/uL (3.5-6.1); RED CELL DISTRIBUTION WIDTH 13.9 % (11.5-14.5); WHITE BLOOD COUNT 4.4 10^3/uL (4.5-11.0)
[2018-09-12 18:26] LABS: TROPONIN I < 0.01 ng/mL
[2018-09-12 18:28] LABS: ALB/GLOB RATIO 1.2 (1.1-1.8); ALBUMIN 4.2 g/dL (3.0-4.8); ALT/SGPT 26 U/L (7-56); AST/SGOT 42 U/L (17-59); BLOOD UREA NITROGEN 22 mg/dL (7-21); CALCIUM 9.4 mg/dL (8.4-10.5); GFR NON-AFRICAN AMERICAN > 60
--- NOTE | 2018-09-12 18:38 | ED PDOC ---
Arrival/HPI - General Chief Complaint: Chest Pain Time Seen by Provider: 09/12/18 16:50 Historian: Patient - History of Present Illness Narrative History of Present Illness (Text): 09/12/18 18:39 62-year-old male presents to the emergency room for chest pain. Patient was just seen in the emergency room admitted to the hospital and signed out AMA for chest pain abdominal pain and back pain after full workup. Patient states he was feeling better but when he got home he developed chest pain again so he returned to the hospital. He denies headache dizziness or weakness. He denies shortness of breath at present time. Patient states abdominal pain is slightly improved. Patient is still complaining of low back pain radiating into the right leg. No dizziness or weakness. No other complaints Past Medical History - Provider Review Nursing Documentation Reviewed: Yes - Travel History Have you recently traveled outside [place] w/in the past 3 mons?: No - Infectious Disease Hx of Infectious Diseases: None - Tetanus Immunization Tetanus Immunization: Unknown - Cardiac Hx Hypertension: Yes - Pulmonary Hx Respiratory Disorders: No - Neurological Hx Neurological Disorder: No - HEENT Hx HEENT Disorder: No - Renal Hx Renal Disorder: No - Endocrine/Metabolic Hx Endocrine Disorders: No - Hematological/Oncological Hx Blood Disorders: No - Integumentary Hx Dermatological Disorder: No - Musculoskeletal/Rheumatological Hx Musculoskeletal Disorders: No - Gastrointestinal Hx Gastrointestinal Disorders: No - Genitourinary/Gynecological Hx Genitourinary Disorders: No - Psychiatric Hx Psychophysiologic Disorder: No Hx Substance Use: No - Anesthesia Hx Anesthesia: No Hx Anesthesia Reactions: No Hx Malignant Hyperthermia: No Family/Social History - Physician Review Nursing Documentation Reviewed: Yes Family/Social History: Unknown Family HX Smoking Status: Never Smoked Hx Alcohol Use: No Hx Substance Use: No Allergies/Home Meds Allergies/Adverse Reactions: Allergies No Known Allergies Allergy (Verified 09/08/17 21:16) Home Medications: Home Meds Medication Instructions Recorded Confirmed Enalapril/Hydrochlorothiazide 1 tab PO DAILY 07/27/17 09/12/18 [Enalapril-Hctz 10-25 mg Tablet] Metoprolol Succinate XL [Toprol XL] 50 mg PO DAILY 07/27/17 09/12/18 Review of Systems - Review of Systems Constitutional: absent: Fatigue, Fevers Respiratory: absent: SOB, Cough Cardiovascular: Chest Pain. absent: Palpitations Gastrointestinal: Abdominal Pain, Diarrhea. absent: Constipation, Nausea, Vomiting Genitourinary Male: absent: Dysuria, Frequency Musculoskeletal: Back Pain. absent: Neck Pain Skin: absent: Rash, Pruritis Neurological: absent: Headache, Dizziness Psychiatric: absent: Anxiety, Depression Physical Exam Vital Signs Reviewed: Yes Vital Signs Temp Pulse Resp BP Pulse Ox 09/12/18 16:47 98 F 87 18 125/73 96 Temperature: Afebrile Blood Pressure: Normal Pulse: Regular Respiratory Rate: Normal Appearance: Positive for: Well-Appearing, Non-Toxic, Comfortable Pain Distress: None Mental Status: Positive for: Alert and Oriented X 3 - Systems Exam Head: Present: Atraumatic Mouth: Present: Moist Mucous Membranes Respiratory/Chest: Present: Clear to Auscultation Cardiovascular: Present: Regular Rate and Rhythm Abdomen: No: Tenderness, Distention, Peritoneal Signs, Rebound, Guarding Back: Present: Normal Inspection, Paraspinal Tenderness (+ bilateral lumbar paraspinal tenderness. no midline tenderness. ). No: Midline Tenderness Upper Extremity: Present: Normal Inspection, Normal ROM Lower Extremity: Present: Normal Inspection, Normal ROM Neurological: Present: GCS=15, Speech Normal Skin: Present: Warm, Dry, Normal Color. No: Rashes Psychiatric: Present: Alert, Oriented x 3 Medical Decision Making ED Course and Treatment: 09/12/18 18:34 Patient had just signed out AMA from the hospital about one hour prior to arrival in the emergency room. Patient states this and as he got home he developed the pain in the chest again and returned. pt denies any shortness of breath now. On previous ER visit TODAY the patient was given 325 of aspirin by mouth and 40meqs of potassium by mouth. All labs and CAT scan and chest x-ray were reviewed cbc: wnl cmp: bun 22: cr; 0.9 trop: wnl EKG: Normal sinus rhythm at 90 bpm normal axis no ST elevations. + flattened t- wave in lateral leads. Case was discussed with Dr. Mittal; accepts observational status admission to telemetry for chest pain, abdominal pain and back pain impression; chest pain, abdominal pain, back pain admit observational status to tele. - Lab Interpretations Lab Results: Troponin I < 0.01 ng/mL 09/12/18 17:57 Total Bilirubin 0.9 mg/dL (0.2-1.3) 09/12/18 17:57 AST 42 U/L (17-59) 09/12/18 17:57 ALT 26 U/L (7-56) 09/12/18 17:57 Alkaline Phosphatase 70 U/L (38-126) 09/12/18 17:57 Total Protein 7.7 g/dL (5.8-8.3) 09/12/18 17:57 Albumin 4.2 g/dL (3.0-4.8) 09/12/18 17:57 Globulin 3.4 gm/dL 09/12/18 17:57 Albumin/Globulin Ratio 1.2 (1.1-1.8) 09/12/18 17:57 - Medication Orders Current Medication Orders: Enoxaparin Sodium (Lovenox) 40 mg SC DAILY [facility]; Protocol Hydrochlorothiazide (Hydrodiuril) 25 mg PO DAILY [facility] Ibuprofen (Motrin Tab) 600 mg PO Q6H PRN PRN Reason: Pain, severe (8-10) Lisinopril (Zestril) 10 mg PO DAILY [facility] Metoprolol Succinate (Toprol Xl) 50 mg PO DAILY [facility] Discontinued Medications Aspirin (Aspirin) 325 mg PO STAT STA Stop: 09/12/18 18:11 Disposition/Present on Arrival - Present on Arrival Any Indicators Present on Arrival: No History of DVT/PE: No History of Uncontrolled Diabetes: No Urinary Catheter: No History of Decub. Ulcer: No History Surgical Site Infection Following: None - Disposition Have Diagnosis and Disposition been Completed?: Yes Diagnosis: Chest pain, Abdominal pain, Back pain Disposition: HOSPITALIZED Disposition Time: 17:15 Patient Plan: Observation Condition: FAIR
--- NOTE | 2018-09-12 19:38 | CP.PCM.HP ---
<Gil Lowery - Last Filed: 09/12/18 20:01> History of Present Illness - History of Present Illness History of Present Illness: Gil Lowery PGY1, History and Physical for Dr Mittal Pt is a 62 yo Korean speaking male with a PMH of HTN who presents to the emergency department complaining of 6 hours of chest pain. Pt states that the pain is made worse by exertion and has been going on for about the last 2 months. He states the pain is brought on by climbing stairs and is relieved by rest. He states the pain is brought on by daily activities and last for about 20-30 mins. Pt reports associated SOB and also palpitations. He states he felt ill last night and has several episodes of diarrhea which stopped by the time he arrived at the hospital. A 12 point ROS was obtained and added to the HPI. PMH: HTN PSH: denies FH: denies family history of cardiac problems SH: denies tobacco, denies alcohol, denies illicit drugs Home meds: metoprolol suc 50mg, enalapril/hctz 06/26 Allergies: denies Present on Admission - Present on Admission Any Indicators Present on Admission: No Review of Systems - Review of Systems Review of Systems: a 12 point ROS was obtained and added to the HPI where appropriate Past Patient History - Infectious Disease Hx of Infectious Diseases: None - Tetanus Immunizations Tetanus Immunization: Unknown - Past Social History Smoking Status: Never Smoked - CARDIAC Hx Hypertension: Yes - PULMONARY Hx Respiratory Disorders: No - NEUROLOGICAL Hx Neurological Disorder: No - HEENT Hx HEENT Problems: No - RENAL Hx Chronic Kidney Disease: No - ENDOCRINE/METABOLIC Hx Endocrine Disorders: No - HEMATOLOGICAL/ONCOLOGICAL Hx Blood Disorders: No - INTEGUMENTARY Hx Dermatological Problems: No - MUSCULOSKELETAL/RHEUMATOLOGICAL Hx Musculoskeletal Disorders: No - GASTROINTESTINAL Hx Gastrointestinal Disorders: No - GENITOURINARY/GYNECOLOGICAL Hx Genitourinary Disorders: No - PSYCHIATRIC Hx Psychophysiologic Disorder: No Hx Substance Use: No - SURGICAL HISTORY Hx Surgeries: No - ANESTHESIA Hx Anesthesia: No Hx Anesthesia Reactions: No Hx Malignant Hyperthermia: No Meds Allergies/Adverse Reactions: Allergies Allergy/AdvReac Type Severity Reaction Status Date / Time No Known Allergies Allergy Verified 09/08/17 21:16 Physical Exam - Constitutional Appears: No Acute Distress - Head Exam Head Exam: ATRAUMATIC, NORMOCEPHALIC - Eye Exam Eye Exam: EOMI - ENT Exam ENT Exam: Mucous Membranes Moist - Respiratory Exam Respiratory Exam: Clear to Auscultation Bilateral, NORMAL BREATHING PATTERN. absent: Accessory Muscle Use, Respiratory Distress - Cardiovascular Exam Cardiovascular Exam: RRR, +S1, +S2. absent: Diastolic murmur, Systolic Murmur - GI/Abdominal Exam GI & Abdominal Exam: Normal Bowel Sounds, Soft - Extremities Exam Extremities exam: Positive for: full ROM, normal inspection, pedal pulses present. Negative for: calf tenderness, pedal edema - Neurological Exam Neurological exam: Alert, Oriented x3 - Psychiatric Exam Psychiatric exam: Normal Affect, Normal Mood - Skin Skin Exam: Dry, Intact, Warm Results - Vital Signs Recent Vital Signs: Last Vital Signs Temp 98 F 09/12/18 16:47 Pulse 87 09/12/18 16:47 Resp 18 09/12/18 16:47 BP 125/73 09/12/18 16:47 Pulse Ox 96 09/12/18 16:47 - Labs Result Diagrams: 09/12/18 17:57 09/12/18 17:57 Labs: Laboratory Results - last 24 hr 09/12/18 09/12/18 17:57 17:57 WBC 4.4 L RBC 4.89 Hgb 13.5 L Hct 40.2 L MCV 82.2 MCH 27.6 MCHC 33.6 RDW 13.9 Plt Count 194 MPV 8.6 Gran % 55.6 Lymph % (Auto) 33.9 [place] % (Auto) 5.3 Eos % (Auto) 5.0 Baso % (Auto) 0.2 Gran # 2.42 Lymph # (Auto) 1.5 [place] # (Auto) 0.2 Eos # (Auto) 0.2 Baso # (Auto) 0.01 Sodium 137 Potassium 3.5 L Chloride 104 Carbon Dioxide 25 Anion Gap 11 BUN 22 H Creatinine 0.9 Est GFR ( Amer) > 60 Est GFR (Non-Af Amer) > 60 Random Glucose 134 H Calcium 9.4 Total Bilirubin 0.9 AST 42 ALT 26 Alkaline Phosphatase 70 Lactate Dehydrogenase 438 Total Creatine Kinase 147 Troponin I < 0.01 Total Protein 7.7 Albumin 4.2 Globulin 3.4 Albumin/Globulin Ratio 1.2 Assessment & Plan - Assessment and Plan (Free Text) Assessment: Pt is a 62 yo Korean speaking male with a PMH of HTN who presents to the emergency department complaining of 6 hours of chest pain. Pt states that the pain is made worse by exertion and has been going on for about the last 2 months. Plan: Chest Pain, ACS rule out - Trop NEGATIVE, continue to trend - HA1C - TSH - Lipid panel in AM - coags - ASA, - EKG in the AM - phos - likely stress test tomorrow - ECHO ordered - Cardio consulted, Dr Haas HTN - metoprolol 50 daily - lisinopril 10 daily - HCTZ 25mg Ppx, diet - lovenox - HHD Pt seen, examined, assessment and plan discussed with Dr Kyrie Lowery PGY1, Internal Medicine Resident - Date & Time Date: 09/12/18 Time: 19:40 <Anne Mittal - Last Filed: 09/13/18 15:19> Results - Vital Signs Recent Vital Signs: Last Vital Signs Temp 98.1 F 09/13/18 12:00 Pulse 79 09/13/18 12:01 Resp 22 09/13/18 12:00 BP 130/70 09/13/18 12:01 Pulse Ox 98 09/13/18 05:43 - Labs Result Diagrams: 09/13/18 04:00 09/13/18 04:00 Labs: Laboratory Results - last 24 hr 09/12/18 09/12/18 09/13/18 17:57 17:57 04:00 WBC 4.4 L RBC 4.89 Hgb 13.5 L Hct 40.2 L MCV 82.2 MCH 27.6 MCHC 33.6 RDW 13.9 Plt Count 194 MPV 8.6 Gran % 55.6 Lymph % (Auto) 33.9 [place] % (Auto) 5.3 Eos % (Auto) 5.0 Baso % (Auto) 0.2 Gran # 2.42 Lymph # (Auto) 1.5 [place] # (Auto) 0.2 Eos # (Auto) 0.2 Baso # (Auto) 0.01 Sodium 137 Potassium 3.5 L Chloride 104 Carbon Dioxide 25 Anion Gap 11 BUN 22 H Creatinine 0.9 Est GFR ( Amer) > 60 Est GFR (Non-Af Amer) > 60 Random Glucose 134 H Calcium 9.4 Phosphorus Magnesium Total Bilirubin 0.9 AST 42 ALT 26 Alkaline Phosphatase 70 Lactate Dehydrogenase 438 Total Creatine Kinase 147 Troponin I < 0.01 Total Protein 7.7 Albumin 4.2 Globulin 3.4 Albumin/Globulin Ratio 1.2 Triglycerides Cholesterol LDL Cholesterol Direct HDL Cholesterol TSH 3rd Generation 0.71 09/13/18 09/13/18 09/13/18 04:00 04:00 11:30 WBC 4.4 L RBC 4.91 Hgb 13.6 L Hct 40.9 L MCV 83.3 MCH 27.7 MCHC 33.3 RDW 13.9 Plt Count 180 MPV 8.4 Gran % Lymph % (Auto) [place] % (Auto) Eos % (Auto) Baso % (Auto) Gran # Lymph # (Auto) [place] # (Auto) Eos # (Auto) Baso # (Auto) Sodium 139 Potassium 3.8 Chloride 103 Carbon Dioxide 29 Anion Gap 11 BUN 20 Creatinine 1.1 Est GFR ( Amer) > 60 Est GFR (Non-Af Amer) > 60 Random Glucose 104 Calcium 9.4 Phosphorus 3.9 Magnesium 2.3 H Total Bilirubin 0.7 AST 38 ALT 26 Alkaline Phosphatase 62 Lactate Dehydrogenase Total Creatine Kinase Troponin I < 0.01 < 0.01 Total Protein 7.2 Albumin 3.9 Globulin 3.3 Albumin/Globulin Ratio 1.2 Triglycerides 94 Cholesterol 156 LDL Cholesterol Direct 91 HDL Cholesterol 40 TSH 3rd Generation Attending/Attestation - Attestation I have personally seen and examined this patient.: Yes I have fully participated in the care of the patient.: Yes I have reviewed all pertinent clinical information: Yes Notes (Text): 09/13/18 15:18 Medical record note made by the resident after discussion with my direction and input after the patient was personally seen and examined by me. I have reviewed the chart and agree that the record accurately reflects by personal performance of the history, physical exam, data review, and medical decision-making, in the course for the patient. I have also personally directed the plan of care. 62 yo Korean speaking male with a PMH of HTN is admitted with H/O Chest and back pain. CT angio chest is negative for aortic dissection and Pulmonary embolism EKG shows NSR, no ischemic changes. Patient has chest wall tenderness, Patient will be monitored in telemery.We will get serial troponin, Echo and cardiology Consult. Management plan was discussed in detail with patient. Education was provided.
--- NOTE | 2018-09-12 19:46 | CARD ---
APPROVED REPORT Date of service: 09/12/2018 EKG Measurement Heart [id number] <Conclusion> Normal sinus rhythm Possible Left atrial enlargement Nonspecific T wave abnormality Abnormal ECG
[2018-09-13 04:25] LABS: HEMOGLOBIN 13.6 g/dL (14.0-18.0); MEAN CELL VOLUME 83.3 fl (80.0-105.0); MEAN CORPUSCULAR HEMOGLOBIN 27.7 pg (25.0-35.0); MEAN CORPUSCULAR HGB CONC 33.3 g/dl (31.0-37.0); MEAN PLATELET VOLUME 8.4 fl (7.0-11.0); RBC 4.91 10^6/uL (3.5-6.1); RED CELL DISTRIBUTION WIDTH 13.9 % (11.5-14.5); WHITE BLOOD COUNT 4.4 10^3/uL (4.5-11.0)
[2018-09-13 04:45] LABS: ALB/GLOB RATIO 1.2 (1.1-1.8); ALBUMIN 3.9 g/dL (3.0-4.8); ALT/SGPT 26 U/L (7-56); AST/SGOT 38 U/L (17-59); BLOOD UREA NITROGEN 20 mg/dL (7-21); CALCIUM 9.4 mg/dL (8.4-10.5); GFR NON-AFRICAN AMERICAN > 60; HDL CHOLESTEROL 40 mg/dL (29-60)
[2018-09-13 04:56] LABS: LDL CHOLESTEROL 91 mg/dL (0-129)
[2018-09-13 05:32] LABS: TROPONIN I < 0.01 ng/mL
[2018-09-13 05:43] VITALS: O2SAT 98
[2018-09-13] MEDS ORDERED: Metoprolol Succinate 50 mg XL Tab PO SCH ×2 (08:00→10:00)
[2018-09-13] MEDS ORDERED: Enoxaparin 40 mg Syringe SC SCH ×2 (10:00)
[2018-09-13] MEDS ORDERED: HYDROCHLOROTHIAZIDE PO SCH (10:00)
[2018-09-13] MEDS ORDERED: [UNRECOGNIZED DRUG - OTHER] PO SCH (10:00)
[2018-09-13] MEDS ORDERED: ENALAPRIL PO SCH (10:00)
--- NOTE | 2018-09-13 11:56 | CP.PCM.CON ---
History of Present Illness - History of Present Illness History of Present Illness: CONSULT for Dr. Haas Awake, alert, denies chest pain but complaining of low back pain radiating to lower extremities Reason for consultation: Cardiac evaluation of chest pain Brief history of present illness: A 62 year old male who came back to the ER due to chest pain. He was in the ER strategic analyst yesterday for chest pain but signed against medical advice. Upon getting home, he has another episode of chest pain and came back to the ER. He is complaining of lower back pain radiating to lower extremities and sometimes to neck. 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 He has been taking Motrin and Tramadol for pain but with no improvement. Back pain that radiates to chest and lower extremities. History of hypertension. Denies chest pain now. Seen and examined by me and Dr. Kohli Review of Systems - Review of Systems All systems: reviewed and no additional remarkable complaints except Review of Systems: as per HPI Past Patient History - Infectious Disease Hx of Infectious Diseases: None - Tetanus Immunizations Tetanus Immunization: Unknown - Past Social History Smoking Status: Never Smoked - CARDIAC Hx Hypertension: Yes - PULMONARY Hx Respiratory Disorders: No - NEUROLOGICAL Hx Neurological Disorder: No - HEENT Hx HEENT Problems: No - RENAL Hx Chronic Kidney Disease: No - ENDOCRINE/METABOLIC Hx Endocrine Disorders: No - HEMATOLOGICAL/ONCOLOGICAL Hx Blood Disorders: No - INTEGUMENTARY Hx Dermatological Problems: No - MUSCULOSKELETAL/RHEUMATOLOGICAL Hx Musculoskeletal Disorders: No - GASTROINTESTINAL Hx Gastrointestinal Disorders: No - GENITOURINARY/GYNECOLOGICAL Hx Genitourinary Disorders: No - PSYCHIATRIC Hx Psychophysiologic Disorder: No Hx Substance Use: No - SURGICAL HISTORY Hx Surgeries: No - ANESTHESIA Hx Anesthesia: No Hx Anesthesia Reactions: No Hx Malignant Hyperthermia: No Meds Allergies/Adverse Reactions: Allergies Allergy/AdvReac Type Severity Reaction Status Date / Time No Known Allergies Allergy Verified 09/08/17 21:16 - Medications Medications: Current Medications Aspirin (Ecotrin) 81 mg PO DAILY [facility] Enoxaparin Sodium (Lovenox) 40 mg SC DAILY [facility]; Protocol Hydrochlorothiazide (Hydrodiuril) 25 mg PO DAILY [facility] Lisinopril (Zestril) 10 mg PO DAILY [facility] Metoprolol Succinate (Toprol Xl) 50 mg PO BRK [facility] Last Admin: 09/13/18 08:20 Dose: 50 mg Physical Exam - Constitutional Appears: Non-toxic, No Acute Distress - Head Exam Head Exam: NORMAL INSPECTION, NORMOCEPHALIC - Eye Exam Eye Exam: Normal appearance Pupil Exam: NORMAL ACCOMODATION - ENT Exam ENT Exam: Mucous Membranes Moist, Normal Exam - Respiratory Exam Respiratory Exam: Clear to Auscultation Bilateral, NORMAL BREATHING PATTERN - Cardiovascular Exam Cardiovascular Exam: REGULAR RHYTHM, +S1, +S2 - GI/Abdominal Exam GI & Abdominal Exam: Normal Bowel Sounds, Soft Additional comments: Telemetry NSR 70's - Extremities Exam Extremities exam: Positive for: full ROM, normal capillary refill - Back Exam Additional comments: No tenderness, complaints of lower back pain radiating to lower extremities and neck - Neurological Exam Neurological exam: Alert, Oriented x3 - Psychiatric Exam Psychiatric exam: Normal Affect, Normal Mood - Skin Skin Exam: Dry, Normal Color, Warm Results - Vital Signs Recent Vital Signs: Last Vital Signs Temp 98.0 F 09/13/18 05:43 Pulse 66 09/13/18 08:20 Resp 18 09/13/18 05:43 BP 122/71 09/13/18 08:20 Pulse Ox 98 09/13/18 05:43 - Labs Result Diagrams: 09/13/18 04:00 09/13/18 04:00 Labs: Laboratory Results - last 24 hr 09/12/18 09/12/18 09/13/18 17:57 17:57 04:00 WBC 4.4 L RBC 4.89 Hgb 13.5 L Hct 40.2 L MCV 82.2 MCH 27.6 MCHC 33.6 RDW 13.9 Plt Count 194 MPV 8.6 Gran % 55.6 Lymph % (Auto) 33.9 [place] % (Auto) 5.3 Eos % (Auto) 5.0 Baso % (Auto) 0.2 Gran # 2.42 Lymph # (Auto) 1.5 [place] # (Auto) 0.2 Eos # (Auto) 0.2 Baso # (Auto) 0.01 Sodium 137 Potassium 3.5 L Chloride 104 Carbon Dioxide 25 Anion Gap 11 BUN 22 H Creatinine 0.9 Est GFR ( Amer) > 60 Est GFR (Non-Af Amer) > 60 Random Glucose 134 H Calcium 9.4 Phosphorus Magnesium Total Bilirubin 0.9 AST 42 ALT 26 Alkaline Phosphatase 70 Lactate Dehydrogenase 438 Total Creatine Kinase 147 Troponin I < 0.01 Total Protein 7.7 Albumin 4.2 Globulin 3.4 Albumin/Globulin Ratio 1.2 Triglycerides Cholesterol LDL Cholesterol Direct HDL Cholesterol TSH 3rd Generation 0.71 09/13/18 09/13/18 04:00 04:00 WBC 4.4 L RBC 4.91 Hgb 13.6 L Hct 40.9 L MCV 83.3 MCH 27.7 MCHC 33.3 RDW 13.9 Plt Count 180 MPV 8.4 Gran % Lymph % (Auto) [place] % (Auto) Eos % (Auto) Baso % (Auto) Gran # Lymph # (Auto) [place] # (Auto) Eos # (Auto) Baso # (Auto) Sodium 139 Potassium 3.8 Chloride 103 Carbon Dioxide 29 Anion Gap 11 BUN 20 Creatinine 1.1 Est GFR ( Amer) > 60 Est GFR (Non-Af Amer) > 60 Random Glucose 104 Calcium 9.4 Phosphorus 3.9 Magnesium 2.3 H Total Bilirubin 0.7 AST 38 ALT 26 Alkaline Phosphatase 62 Lactate Dehydrogenase Total Creatine Kinase Troponin I < 0.01 Total Protein 7.2 Albumin 3.9 Globulin 3.3 Albumin/Globulin Ratio 1.2 Triglycerides 94 Cholesterol 156 LDL Cholesterol Direct 91 HDL Cholesterol 40 TSH 3rd Generation Assessment & Plan - Assessment and Plan (Free Text) Assessment: A 62 year old male who came back to the ER due to chest pain. He was in the ER strategic analyst yesterday for chest pain but signed against medical advice. Upon getting home, he has another episode of chest pain and came back to the ER. He is complaining of lower back pain radiating to lower extremities and sometimes to neck. 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 He has been taking Motrin and Tramadol for pain but with no improvement. Back pain that radiates to chest and lower extremities. History of hypertension. Denies chest pain now.EKG showed Normal sinus rhythm, non specific T wave abnormality, Troponin 0.01 x 4, normal. CT of chest done ruled out aortic dissection, small hiatial hernia, right non obstructive renal calculus,enlarged prostate, degenerative changes L4-L5.Atypical chest pain. Rule out acute myocardial ischemia. Will order Echo to evaluate LV function.Out patient stress test. Plan: Denies chest pain, complaining of lower back pain. Troponin normal Controlled blood pressure Controlled heart rate On ASA 81 mg daily,Lovenox 40 mg daily,Hydrodiuril 25m g daily,Lisinopril 10 mg daily Toprol 50 mg daily Continue current treatment Continue current medications Will give Naproxene for back pain Protonix for GI prophylaxis Will follow up Further recommendations during hospital course Plan and treatment discussed with Dr. Kohli Thank you Dr. Mittal for the opportunity of taking care of [facility] Covering for Dr. Haas - Date & Time Date: 09/13/18 Time: 12:05
[2018-09-13 12:04] VITALS: BP 130/70; PULSE 79
[2018-09-13 13:02] VITALS: RESP 22; TEMP 98.1
--- NOTE | 2018-09-13 13:19 | CP.PCM.DIS ---
<Ramona Lieberman - Last Filed: 09/13/18 14:18> Provider - Provider Date of Admission: 09/12/18 17:16 Attending physician: Anne Mittal MD Consults: 09/12/18 18:17 Cardiology Consult Routine Comment: Consulting Provider: Valentino Haas Consulting Physician: Valentino Haas Reason for Consult: chest pain r/o ACS Time Spent in preparation of Discharge (in minutes): 35 Hospital Course - Lab Results Lab Results: Most Recent Lab Values WBC 4.4 10^3/uL (4.5-11.0) L 09/13/18 04:00 RBC 4.91 10^6/uL (3.5-6.1) 09/13/18 04:00 Hgb 13.6 g/dL (14.0-18.0) L 09/13/18 04:00 Hct 40.9 % (42.0-52.0) L 09/13/18 04:00 MCV 83.3 fl (80.0-105.0) 09/13/18 04:00 MCH 27.7 pg (25.0-35.0) 09/13/18 04:00 MCHC 33.3 g/dl (31.0-37.0) 09/13/18 04:00 RDW 13.9 % (11.5-14.5) 09/13/18 04:00 Plt Count 180 10^3/uL (120.0-450.0) 09/13/18 04:00 MPV 8.4 fl (7.0-11.0) 09/13/18 04:00 Gran % 55.6 % (50.0-68.0) 09/12/18 17:57 Lymph % (Auto) 33.9 % (22.0-35.0) 09/12/18 17:57 Waldo % (Auto) 5.3 % (1.0-6.0) 09/12/18 17:57 Eos % (Auto) 5.0 % (1.5-5.0) 09/12/18 17:57 Baso % (Auto) 0.2 % (0.0-3.0) 09/12/18 17:57 Gran # 2.42 (1.4-6.5) 09/12/18 17:57 Lymph # (Auto) 1.5 (1.2-3.4) 09/12/18 17:57 Waldo # (Auto) 0.2 (0.1-0.6) 09/12/18 17:57 Eos # (Auto) 0.2 (0.0-0.7) 09/12/18 17:57 Baso # (Auto) 0.01 K/mm3 (0.0-2.0) 09/12/18 17:57 Sodium 139 mmol/L (132-148) 09/13/18 04:00 Potassium 3.8 mmol/L (3.6-5.0) 09/13/18 04:00 Chloride 103 mmol/L (98-107) 09/13/18 04:00 Carbon Dioxide 29 mmol/L (21-33) 09/13/18 04:00 Anion Gap 11 (10-20) 09/13/18 04:00 BUN 20 mg/dL (7-21) 09/13/18 04:00 Creatinine 1.1 mg/dl (0.8-1.5) 09/13/18 04:00 Est GFR ( Amer) > 60 09/13/18 04:00 Est GFR (Non-Af Amer) > 60 09/13/18 04:00 Random Glucose 104 mg/dL (70-110) 09/13/18 04:00 Calcium 9.4 mg/dL (8.4-10.5) 09/13/18 04:00 Phosphorus 3.9 mg/dL (2.5-4.5) 09/13/18 04:00 Magnesium 2.3 mg/dL (1.7-2.2) H 09/13/18 04:00 Total Bilirubin 0.7 mg/dL (0.2-1.3) 09/13/18 04:00 AST 38 U/L (17-59) 09/13/18 04:00 ALT 26 U/L (7-56) 09/13/18 04:00 Alkaline Phosphatase 62 U/L (38-126) 09/13/18 04:00 Lactate Dehydrogenase 438 U/L (333-699) 09/12/18 17:57 Total Creatine Kinase 147 U/L (35-230) 09/12/18 17:57 Troponin I < 0.01 ng/mL 09/13/18 11:30 Total Protein 7.2 g/dL (5.8-8.3) 09/13/18 04:00 Albumin 3.9 g/dL (3.0-4.8) 09/13/18 04:00 Globulin 3.3 gm/dL 09/13/18 04:00 Albumin/Globulin Ratio 1.2 (1.1-1.8) 09/13/18 04:00 Triglycerides 94 mg/dL (35-160) 09/13/18 04:00 Cholesterol 156 mg/dL (130-200) 09/13/18 04:00 LDL Cholesterol Direct 91 mg/dL (0-129) 09/13/18 04:00 HDL Cholesterol 40 mg/dL (29-60) 09/13/18 04:00 TSH 3rd Generation 0.71 mIU/mL (0.46-4.68) 09/13/18 04:00 - Hospital Course Hospital Course: Upon admission, patient is a 62 yo Welsh speaking male with a PMH of HTN who presented to the emergency department complaining of 6 hours of chest pain. Pt states that the pain is made worse by exertion and has been going on for about the last 2 months. He states the pain is brought on by climbing stairs and is relieved by rest. He states the pain is brought on by daily activities and last for about 20-30 mins. Pt reports associated SOB and also palpitations. He states he felt ill last night and has several episodes of diarrhea which stopped by the time he arrived at the hospital. During hospital course, initial EKG showed NSR with 90bpm and no ST changes. Troponins x3 were unremarkable. TSH and lipid panel were WNL. Patient's vitals were WNL and afebrile. Echo was unremarkable and showed EF of 55%. Patient had LE dopplers were were negative for DVT B/L. Patient continued on home medication of metoprolol 50mg, lisinopril 10mg, and HCTZ 25mg. Patient cleared by cardiology for discharge and discussed with patient importance of outpatient stress test. Patient agreed with discharge and all questions were answered. Discharge Exam - Additional Findings Additional findings: - Constitutional Appears: No Acute Distress - Head Exam Head Exam: ATRAUMATIC, NORMOCEPHALIC - Eye Exam Eye Exam: EOMI - ENT Exam ENT Exam: Mucous Membranes Moist - Respiratory Exam Respiratory Exam: Clear to Auscultation Bilateral, NORMAL BREATHING PATTERN. absent: Accessory Muscle Use, Respiratory Distress - Cardiovascular Exam Cardiovascular Exam: RRR, +S1, +S2. absent: Diastolic murmur, Systolic Murmur - GI/Abdominal Exam GI & Abdominal Exam: Normal Bowel Sounds, Soft - Extremities Exam Extremities exam: Positive for: full ROM, normal inspection, pedal pulses present. Negative for: calf tenderness, pedal edema - Neurological Exam Neurological exam: Alert, Oriented x3 - Psychiatric Exam Psychiatric exam: Normal Affect, Normal Mood - Skin Skin Exam: Dry, Intact, Warm Discharge Plan - Discharge Medications Prescriptions: RX: Aspirin [Ecotrin] 81 mg PO DAILY #30 tabec RX: Naproxen [Anaprox DS] 550 mg PO BID PRN 10 Days #10 tab PRN Reason: Pain, Moderate (4-7) - Follow Up Plan Condition: FAIR Disposition: HOME/ ROUTINE Instructions: Chest Pain (DC) Additional Instructions: Please follow up with your primary doctor, Dr. Ocampo within 5-7 days of discharge. Please follow up with tinter photograph, Dr. Kohli within 5-7 days of discharge. A referral has been to you. Please schedule cardiac stress test with Dr. Kohli Please continue your home medications. As per our discussion, you do not need refills at this time. Please take Aspirin 81mg once daily. Please take naproxen as needed for back pain. You will get refills from your primary doctor. Please return to the ED for any new or worsening symptoms. Referrals: Sammi Ocampo MD [Medical Doctor] - Anne Kohli MD [Staff Provider] - <Anne Mittal - Last Filed: 09/13/18 15:17> Provider - Provider Date of Admission: 09/12/18 17:16 Attending physician: Anne Mittal MD Consults: 09/12/18 18:17 Cardiology Consult Routine Comment: Consulting Provider: Valentino Haas Consulting Physician: Valentino Haas Reason for Consult: chest pain r/o ACS Hospital Course - Lab Results Lab Results: Most Recent Lab Values WBC 4.4 10^3/uL (4.5-11.0) L 09/13/18 04:00 RBC 4.91 10^6/uL (3.5-6.1) 09/13/18 04:00 Hgb 13.6 g/dL (14.0-18.0) L 09/13/18 04:00 Hct 40.9 % (42.0-52.0) L 09/13/18 04:00 MCV 83.3 fl (80.0-105.0) 09/13/18 04:00 MCH 27.7 pg (25.0-35.0) 09/13/18 04:00 MCHC 33.3 g/dl (31.0-37.0) 09/13/18 04:00 RDW 13.9 % (11.5-14.5) 09/13/18 04:00 Plt Count 180 10^3/uL (120.0-450.0) 09/13/18 04:00 MPV 8.4 fl (7.0-11.0) 09/13/18 04:00 Gran % 55.6 % (50.0-68.0) 09/12/18 17:57 Lymph % (Auto) 33.9 % (22.0-35.0) 09/12/18 17:57 Waldo % (Auto) 5.3 % (1.0-6.0) 09/12/18 17:57 Eos % (Auto) 5.0 % (1.5-5.0) 09/12/18 17:57 Baso % (Auto) 0.2 % (0.0-3.0) 09/12/18 17:57 Gran # 2.42 (1.4-6.5) 09/12/18 17:57 Lymph # (Auto) 1.5 (1.2-3.4) 09/12/18 17:57 Waldo # (Auto) 0.2 (0.1-0.6) 09/12/18 17:57 Eos # (Auto) 0.2 (0.0-0.7) 09/12/18 17:57 Baso # (Auto) 0.01 K/mm3 (0.0-2.0) 09/12/18 17:57 Sodium 139 mmol/L (132-148) 09/13/18 04:00 Potassium 3.8 mmol/L (3.6-5.0) 09/13/18 04:00 Chloride 103 mmol/L (98-107) 09/13/18 04:00 Carbon Dioxide 29 mmol/L (21-33) 09/13/18 04:00 Anion Gap 11 (10-20) 09/13/18 04:00 BUN 20 mg/dL (7-21) 09/13/18 04:00 Creatinine 1.1 mg/dl (0.8-1.5) 09/13/18 04:00 Est GFR ( Amer) > 60 09/13/18 04:00 Est GFR (Non-Af Amer) > 60 09/13/18 04:00 Random Glucose 104 mg/dL (70-110) 09/13/18 04:00 Calcium 9.4 mg/dL (8.4-10.5) 09/13/18 04:00 Phosphorus 3.9 mg/dL (2.5-4.5) 09/13/18 04:00 Magnesium 2.3 mg/dL (1.7-2.2) H 09/13/18 04:00 Total Bilirubin 0.7 mg/dL (0.2-1.3) 09/13/18 04:00 AST 38 U/L (17-59) 09/13/18 04:00 ALT 26 U/L (7-56) 09/13/18 04:00 Alkaline Phosphatase 62 U/L (38-126) 09/13/18 04:00 Lactate Dehydrogenase 438 U/L (333-699) 09/12/18 17:57 Total Creatine Kinase 147 U/L (35-230) 09/12/18 17:57 Troponin I < 0.01 ng/mL 09/13/18 11:30 Total Protein 7.2 g/dL (5.8-8.3) 09/13/18 04:00 Albumin 3.9 g/dL (3.0-4.8) 09/13/18 04:00 Globulin 3.3 gm/dL 09/13/18 04:00 Albumin/Globulin Ratio 1.2 (1.1-1.8) 09/13/18 04:00 Triglycerides 94 mg/dL (35-160) 09/13/18 04:00 Cholesterol 156 mg/dL (130-200) 09/13/18 04:00 LDL Cholesterol Direct 91 mg/dL (0-129) 09/13/18 04:00 HDL Cholesterol 40 mg/dL (29-60) 09/13/18 04:00 TSH 3rd Generation 0.71 mIU/mL (0.46-4.68) 09/13/18 04:00 Attending/Attestation - Attestation I have personally seen and examined this patient.: Yes I have fully participated in the care of the patient.: Yes I have reviewed all pertinent clinical information, including history, physical exam and plan: Yes Notes (Text): 09/13/18 15:11 Medical record note made by the resident after discussion with my direction and input after the patient was personally seen and examined by me. I have reviewed the chart and agree that the record accurately reflects by personal performance of the history, physical exam, data review, and medical decision-making, in the course for the patient. I have also personally directed the plan of care. 62 yo Welsh speaking male with a PMH of HTN is admitted with H/O Chest and back pain. CT angio chest is negative for aortic dissection and Pulmonary embolism EKG shows NSR, no ischemic changes. Patient has chest wall tenderness, Telemetry is unremarkable. Serial troponins are normal. Echo showed normal sytolic function. Venous doppler is negative for DVT. Patient case was discussed with cardiology, out patient stress test is recommended. Patient will be discharged home and will follow up with cardiology and PCP. Patient is pain free and is ambulatory at the time of discharge. Management plan was discussed in detail with patient. Education was provided. 09/13/18 15:14
[2018-09-13] MEDS ORDERED: Pantoprazole 20 mg EC Tab PO SCH (16:00)
--- NOTE | 2018-09-13 17:17 | CON ---
DATE: 09/13/2018 LOCATION: The patient is room 266, bed 1. Detailed consult has been written by Carley Poe and this is an additional note to that consult. REASON FOR CONSULTATION: Chest pain, shortness of breath. 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 But he says since last 2 months when he exerted himself going up hill or upstairs, he gets shortness of breath. So cardiac evaluation was requested. The patient is clinically is chest pain free. Denies shortness of breath. palpitation while he is staying in the bed. The patient's troponin has been negative. The patient had echocardiogram done today and diagnosis is atypical chest pain, shortness of breath on exertion, back pain, and hypertension. Troponin x3 negative. PLAN: To do nuclear stress test as an outpatient if the patient wants to go home and we will also try Naprosyn 550 twice a day for back pain. The patient also is on aspirin 81 mg daily, hydrochlorothiazide 25 daily, Protonix 20 twice a day, metoprolol 50 mg daily, lisinopril 10 mg daily, Lovenox 40 mg subcutaneous daily. We will follow. Anne Kohli MD
[2018-09-13] MEDS ORDERED: Naproxen 550 mg Tab PO SCH (18:00)
--- NOTE | 2018-09-13 20:35 | CARD ---
APPROVED REPORT Date of service: 09/13/2018 EKG Measurement Heart [id number] <Conclusion> Normal sinus rhythm Nonspecific ST and T wave abnormality Abnormal ECG
--- NOTE | 2018-09-13 20:52 | CARD ---
APPROVED REPORT Date of service: 09/13/2018 EXAM: Two-dimensional and M-mode echocardiogram with Doppler and color Doppler. INDICATION Dyspnea Chest Pain 2D DIMENSIONS Left Atrium (2D)4.9 (1.6-4.0cm)IVSd1.1 (0.7-1.1cm) Aortic Root (2D)3.2 (2.0-3.7cm)LVDd4.6 (3.9-5.9cm) PWd1.2 (0.7-1.1cm)LVDs2.1 (2.5-4.0cm) FS (%) 54.8 %LVEF (%)85.5 (>50%) M-Mode DIMENSIONS Aortic Cusp Exc.2.30 (1.5-2.0cm) Mitral Valve MV E Mzcinjbc32.1cm/sMV A Grfktacp11.6cm/sE/A ratio1.2 TDI Lateral E' Peak V12.50cm/sMedial E' Peak V5.65cm/sE/Lateral E'4.9 E/Medial E'10.8 Pulmonary Valve PV Peak Evnwsoog626.0cm/sPV Peak Grad.7mmHg Tricuspid Valve TR Peak [id number]/sRAP [id number] Peak Gr.18mmHg [id number] LEFT VENTRICLE The left ventricle is normal size. There is normal left ventricular wall thickness. The left ventricular ejection fraction is within the normal range. lateral wall hypokinesis Transmitral Doppler flow pattern is Grade I-abnormal relaxation pattern. RIGHT VENTRICLE The right ventricle is normal size. There is normal right ventricular wall thickness. The right ventricular systolic function is normal. ATRIA The left atrium is moderately dilated. There is increased echogenicity in the left atriim The right atrium size is normal. AORTIC VALVE The aortic valve is normal in structure. No aortic regurgitation is present. There is no aortic valvular stenosis. MITRAL VALVE The mitral valve is not well visualized. Mitral regurgitation is trace. There is no mitral valve stenosis. TRICUSPID VALVE The tricuspid valve is normal in structure. There is trace tricuspid regurgitation. PULMONIC VALVE The pulmonary valve is normal in structure. There is no pulmonic valvular regurgitation. GREAT VESSELS The aortic root is normal in size. The IVC is normal in size and collapses >50% with inspiration. PERICARDIAL EFFUSION There is no pericardial effusion. <Conclusion> There is normal left ventricular wall thickness. The left ventricular ejection fraction is within the normal range. lateral wall hypokinesis Mitral regurgitation is trace. There is trace tricuspid regurgitation. The left atrium is moderately dilated. There is increased echogenicity in the left atriim
--- NOTE | 2018-09-14 13:31 | US ---
HISTORY: Leg pain and swelling. Evaluate for DVT PHYSICIAN(S): Anthony Cooper MD. TECHNIQUE: Duplex sonography and color-flow Doppler with graded compression were used to evaluate the deep venous systems of both lower extremities. FINDINGS: The visualized deep venous systems of both lower extremities are sonographically normal and compressible. Normal wave forms and augmentation are seen. There is no sonographic evidence for deep venous thrombosis in the visualized segments of both lower extremities. IMPRESSION: No sonographic evidence for deep venous thrombosis in the visualized segments of both lower extremities.
== END 2018-09-13 15:02 | disposition home or self-care (01) ==
LOC: ED 16:47 → ERH 17:16 → 2RNO 19:15
PROVIDERS: ADMIT Internal Medicine; ATTEND Internal Medicine
DX: R07.9 Chest pain, unspecified (principal); I10 Essential (primary) hypertension; X50.0XXA Overexertion from strenuous movement or load, initial encounter; Y93.F2 Activity, caregiving, lifting; Y99.0 Civilian activity done for income or pay
CPT/HCPCS: 36415; 80053; 80061; 82550; 83036; 83615; 83735; 84100; 84443; 84484; 85025; 85027; 93005; 93306; 93970; 99285; G0378; J1650